=== PATIENT | female | born 1980 | race Asian ===

== ENCOUNTER 2017-11-07 13:56 | Emergency (ER) | payer OTHER ==
[~2017-11-07] VITALS: Ht 152.4 cm; Wt 60.3 kg
[2017-11-07] MEDS ORDERED: PRILOSEC 20 MG20 MG PO (14:00)
[2017-11-07 14:16] LABS: URINE BILIRUBIN NEGATIVE (Negative); URINE BLOOD NEGATIVE (Negative); URINE CLARITY CLEAR; URINE COLOR YELLOW; URINE GLUCOSE-RANDOM NEGATIVE (Negative); URINE KETONES NEGATIVE (Negative); URINE LEUKOCYTES-REFLEX NEGATIVE (Negative); URINE PROTEIN NEGATIVE (Negative); URINE SPECIFIC GRAVITY <= 1.005 (1.005-1.030); URINE UROBILINOGEN 0.2 E.U./dl (0.2-1.0)
[2017-11-07 14:17] LABS: URINE NITRITE-REFLEX POSITIVE (Negative)
[2017-11-07 14:24] LABS: BACTERIA-REFLEX >30 Many /HPF (None Seen); SQUAMOUS 4-10 Moderate /LPF (0-3); URINE RBC 0-2 Rare /HPF (0-2); URINE WBC-REFLEX 0-5 Rare /HPF (0-5)
[2017-11-07 14:25] LABS: CASTS None Seen /LPF (None Seen); CRYSTALS None Seen /LPF (None Seen)
[2017-11-07 14:33] LABS: AMP/METHAMP Negative (Negative); BARBITURATES Negative (Negative); BENZODIAZEPINES Negative (Negative); COCAINE Negative (Negative); METHADONE Negative (Negative); OPIATES Negative (Negative); PCP Negative (Negative); THC Negative (Negative)
[2017-11-07 14:36] LABS: ABSOLUTE BASOPHILS 0.1 thou/uL (0.0-0.2); ABSOLUTE EOSINOPHILS 0.1 thou/uL (0.0-0.7); ABSOLUTE LYMPHOCYTES 2.2 thou/uL (0.8-5.3); ABSOLUTE MONOCYTES 0.5 thou/uL (0.0-1.2); ABSOLUTE NEUTROPHILS 9.9 thou/uL (1.6-8.1); BASOPHILS 0.8 %; EOSINOPHILS 0.6 %; HEMATOCRIT 40.8 % (37.0-47.0); HEMOGLOBIN 13.4 gm/dL (12.0-15.0); LYMPHOCYTES 17.1 %; MCH 30.9 pg (26.0-34.0); MCV 93.8 fL (80.0-100.0); MONOCYTES 3.7 %; MPV 8.3 fl. (7.2-11.1); NUCLEATED RBCS 0 /100WBC; PLATELET COUNT* 230 thou/uL (150-400); POLYS 77.8 %; RBC 4.35 mil/uL (4.20-5.00); RDW-CV 13.7 % (10.5-14.5); WBC 12.7 thou/uL (4.0-11.0)
[2017-11-07 14:43] LABS: ANION GAP 6 mmol/L (7-16); BUN 5 mg/dL (7-18); CALCIUM 7.6 mg/dL (8.5-10.1); CHLORIDE 107 mmol/L (98-107); CO2 27 mmol/L (21-32); CREATININE 0.7 mg/dL (0.6-1.3); GLUCOSE 87 mg/dL (70-99); POTASSIUM 3.1 mmol/L (3.5-5.1); SODIUM 140 mmol/L (136-145)
[2017-11-07 14:49] LABS: ALBUMIN 3.4 g/dL (3.4-5.0); ALKALINE PHOSPHATASE 46 U/L (46-116); LIPASE 139 U/L (73-393); SGOT 15 U/L (15-37); SGPT 10 U/L (30-65); TOTAL BILIRUBIN 0.6 mg/dL (<0.1-1.0); TROPONIN-I LEVEL <0.06 ng/mL (<0.06)
--- NOTE | 2017-11-07 15:57 | EKG ---
[place] [address] ELECTROCARDIOGRAM REPORT Name: WHITNEY SINGH Room: [facility]#: [id number] Admission: 11/07/17 Attend Phys: Discharge: Date of : 80 Report #: [id number] THIS REPORT FOR: //name// [facility] ED Test Date: 2017-11-07 Test Time: 14:00:43 Pat Name: WHITNEY SINGH Department: Room: Gender: F [employer] Supervisor: Jose Antonio WEINBERG : 1980 Requested By: Angelito Franz Order Number: [id number] MD: Jonny Villanueva Measurements Intervals [place] Rate: 61 P: 42 MO: 144 QRS: 41 QRSD: 108 T: 44 QT: 426 QTc: 429 Interpretive Statements Sinus rhythm No previous ECG available for comparison Electronically Signed On 11-07-2017 15:56:45 CDT by Jonny Villanueva [email or web address] <ELECTRONICALLY SIGNED> By: Jonny Villanueva MD, [facility] 11/07/17 1556 1400 [facility] [place][note 2] Jonny Villanueva MD, FACC /EPI
[2017-11-07 16:04] VITALS: BP 105/66
== END 2017-11-07 16:05 | disposition home or self-care (01) ==
LOC: EDBD 13:56 → M.ERS 13:56
PROVIDERS: Family Medicine
DX: R10.9 Unspecified abdominal pain (principal); R53.1 Weakness